=== PATIENT | female | born 1965 | race Caucasian/White ===

== ENCOUNTER 2018-04-19 14:07 | Emergency (ER) | payer OTHER ==
[~2018-04-19] VITALS: Ht 160 cm; Wt 121.6 kg
[2018-04-19] MEDS ORDERED: IOHEXOL 350 MG/ML 150 ML (OMNIPAQUE 350) VIAL IV ONE (15:00)
[2018-04-19] MEDS ORDERED: RECEIVED CONTRAST 20 ML VIAL IV SCH (15:00)
[2018-04-19] MEDS ORDERED: NS 100 ML (IVPB) BAG IV ONE (15:00)
--- NOTE | 2018-04-19 15:06 | ED Lower Extremity ---
General Chief Complaint: Lower Extremity Stated Complaint: RIGHT LEG PAIN Nursing Triage Note: Patient advises that she began experiencing pain in the back of her knee and lower right leg shortly after a total knee replacement on 04/04/17. She advises the pain has become progressively worse and today the [facility] health nurse advised that she was tachycardic and was concerned the patient may have a blood clot. Pt. was evaluated at [facility] and referred to ER for ultrasound capabilities. Pt. D Dimer at 1158 04/19/18 3350.0 Nursing Sepsis Screen: No Definite Risk Source: patient Exam Limitations: no limitations History of Present Illness Date Seen by Provider: Apr 19, 2018 Time Seen by Provider: 15:04 Initial Comments To ER per private vehicle from [facility] where she presented today with concerns of right leg pain and swelling. She's also had some exertional dyspnea for the past few days. She had a right total knee replacement at [facility] by Dr. Walker on 04/04/18. No history of DVT. Onset: just prior to arrival Severity: moderate Pain/Injury Location: right leg Method of Injury: other (recent surgery) Allergies and Home Medications Allergies Coded Allergies: No Known Drug Allergies (Unverified , 04/19/18) Home Medications Rivaroxaban 15 Mg Tablet, 15 MG PO BID Prescribed by: ELIN GALLEGOS on 04/19/18 1611 Patient Home Medication List Home Medication List Reviewed: Yes Review of Systems Constitutional: see HPI EENTM: see HPI Respiratory: see HPI, dyspnea on exertion, short of breath Cardiovascular: no symptoms reported Genitourinary: no symptoms reported Musculoskeletal: no symptoms reported Skin: no symptoms reported Psychiatric/Neurological: No Symptoms Reported Past Rbpiyjk-Ghaweh-Dnomue Hx Patient Social History Alcohol Use: Denies Use Recreational Drug Use: No Smoking Status: Current Everyday Smoker Type Used: Cigars Recent Foreign Travel: No Contact w/Someone Who Travel: No Recent Infectious Disease Expo: No Recent Hopitalizations: Yes (total knee replacement 04/04/17) Seasonal Allergies Seasonal Allergies: No Past Medical History Surgeries: Yes (knee, back) Section, Orthopedic Respiratory: No Cardiac: Yes Hypertension Neurological: No Genitourinary: No Gastrointestinal: No Musculoskeletal: No HEENT: No Cancer: No Psychosocial: No Integumentary: No Blood Disorders: No Physical Exam Vital Signs Vital Signs - First Documented 04/19/18 14:44 Temp 98.5 Pulse 115 Resp 16 B/P (MAP) 154/95 (114) Pulse Ox 100 O2 Delivery Room Air Capillary Refill : Less Than 3 Seconds Height, Weight, BMI Height: 5'3.00" Weight: 268lbs. oz. 121.531864ur; BMI Method:Stated General Appearance: WD/WN, no apparent distress, obese HEENT: PERRL/EOMI, normal ENT inspection Neck: non-tender, full range of motion Cardiovascular: tachycardia (borderline at 100) Respiratory: no respiratory distress, no accessory muscle use Gastrointestinal: normal bowel sounds, non tender, soft Hips: bilateral hip non-tender, bilateral hip normal inspection, bilateral hip normal range of motion Legs: left leg pain, left leg soft tissue tenderness, left leg swelling, left leg other (ecchymosis to the medial aspect of the right calf. The incision to the anterior right knee is clean dry and intact.) Knees: bilateral knee non-tender, bilateral knee normal inspection, bilateral knee normal range of motion Ankles: bilateral ankle non-tender, bilateral ankle normal inspection, bilateral ankle normal range of motion Feet: bilateral foot non-tender, bilateral foot normal inspection, bilateral foot normal range of motion Neurologic/Psychiatric: alert, normal mood/affect, oriented x 3 Skin: normal color, warm/dry Progress/Results/Core Measures Results/Orders My Orders Orders - ELIN GALLEGOS APRN Ct Angio Chest W (04/19/18 14:10) Us Venous Lower Ext Rt (04/19/18 14:10) Iohexol Injection (Omnipaque 350 Mg/Ml 1 (04/19/18 15:00) Contrast Received (Contrast Received) (04/19/18 15:00) Ns (Ivpb) (Sodium Chloride 0.9% Ivpb Bag (04/19/18 15:00) Rivaroxaban Tablet (Xarelto Tablet) (04/19/18 16:15) Vital Signs/I&O 04/19/18 04/19/18 14:44 16:28 Temp 98.5 Pulse 115 103 Resp 16 14 B/P (MAP) 154/95 (114) 104/67 (79) Pulse Ox 100 97 O2 Delivery Room Air Room Air Blood Pressure Mean: 114 Diagnostic Imaging Diagonstic Imaging: Ultrasound Comments NAME: VALERIY KNOWLES Henny [facility] REC#: [id number] PT STATUS: REG ER : 1965 PHYSICIAN: ELIN GALLEGOS APRN ADMIT DATE: 04/19/18/ER Draft Date of Exam:04/19/18 US VENOUS LOWER EXT RT PROCEDURE: US right lower extremity venous. TECHNIQUE: Multiple real-time grayscale images were obtained over the right lower extremity in various projections. Additional spectral analysis and color Doppler duplex images were also obtained. INDICATION: Pain and swelling. FINDINGS: There is deep venous thrombosis in the right popliteal vein extending into the posterior tibial vein. The remainder of the right lower extremity venous system is patent. There are no abnormal fluid collections or masses. IMPRESSION: Deep venous thrombosis in the right popliteal vein extending into the posterior tibial vein. Dictated on workstation # [id number] Dict: 04/19/18 1517 Trans: 04/19/18 1521 [id number] Interpreted by: PHILLY LUEVANO MD Electronically signed by: Departure Communication (Admissions) Exertional dyspnea is attributed to deconditioning. The CT angiogram of the chest reveals no evidence of pulmonary embolus or other acute pathology. Impression Primary Impression: Right leg DVT Qualified Codes: I82.401 - Acute embolism and thrombosis of unspecified deep veins of right lower extremity Disposition: HOME, SELF-CARE Condition: Stable Departure-Patient Inst. Decision time for Depature: 16:11 Referrals: CHERYL KUMAR MD (PCP) Primary Care Physician Patient Instructions: Deep Vein Thrombosis (Blood Clots in the Legs) (DC) Add. Discharge Instructions: 1. Follow-up with your doctor next week 2. Return to ER for any shortness of breath, lightheadedness, bloody stools, weakness or other concerns. All discharge instructions reviewed with patient and /or family. Voiced understanding. Scripts Rivaroxaban (Xarelto) 15 Mg Tablet 15 MG PO BID, #42 TAB Prov: ELIN GALLEGOS APRN 04/19/18 ELIN GALLEGOS APRN Apr 19, 2018 15:06
--- NOTE | 2018-04-19 15:22 | Diagnostic Imaging Report ---
PROCEDURE: US right lower extremity venous. TECHNIQUE: Multiple real-time grayscale images were obtained over the right lower extremity in various projections. Additional spectral analysis and color Doppler duplex images were also obtained. INDICATION: Pain and swelling. FINDINGS: There is deep venous thrombosis in the right popliteal vein extending into the posterior tibial vein. The remainder of the right lower extremity venous system is patent. There are no abnormal fluid collections or masses. IMPRESSION: Deep venous thrombosis in the right popliteal vein extending into the posterior tibial vein. Dictated by: Dictated on workstation # [id number]
--- NOTE | 2018-04-19 15:44 | Diagnostic Imaging Report ---
PROCEDURE: CT angiography of the chest with contrast. TECHNIQUE: Multiple contiguous axial images were obtained through the chest after uneventful bolus administration of intravenous contrast. 2D reconstructed CTA MIP acquisitions were also performed. INDICATION: Shortness of breath. Recent knee surgery. COMPARISON: None. FINDINGS: The pulmonary arteries are diagnostic to the segmental level. No filling defect is seen to indicate pulmonary embolus. The aorta demonstrates no dissection or narrowing. The heart is normal in size. There is no pericardial effusion. No mediastinal adenopathy is seen. The thyroid gland appears mildly large and heterogeneous. The lungs demonstrate no focal consolidation. There is no pleural effusion or pneumothorax. No central endobronchial lesions are seen. Imaged portions of the upper abdomen demonstrate no acute abnormality. A small splenule is noted. No acute osseous abnormality is seen. There are mild degenerative changes in the thoracic spine. IMPRESSION: 1. No pulmonary embolus. No acute pulmonary abnormality is seen. Dictated by: Dictated on workstation # [id number]
[2018-04-19] MEDS ORDERED: RIVA15TA PO (16:11)
[2018-04-19] MEDS ORDERED: RIVAROXABAN 15 MG TABLET (XARELTO) PO ONE (16:15)
[2018-04-19 16:28] VITALS: BP 104/67
--- OUTSIDE RECORDS SUMMARY | 2018-04-21 10:08 | XMS REPORT ---
Author Author KHANH NO [facility] Address [address] [place] [address] Care Team Providers Care Detail Technician Name Role Phone KHANH NO Unavailable PROBLEMS Type Condition ICD9-CM Code [id number] Code Onset Dates Condition Status SNOMED Code Problem Bunion, right foot M21.611 Active 068704480 Problem Acquired hypothyroidism E03.9 Active 967714955 Problem Abnormal thyroid blood test R94.6 Active 583211780 Problem Acute non-recurrent maxillary sinusitis J01.00 Active 94295854 Problem Plantar wart, right foot B07.0 Active 74742316 Problem Essential hypertension I10 Active 54224831 Problem History of anemia Z86.2 Active 593077468 ALLERGIES Unknown Allergies SOCIAL HISTORY No smoking Hx information available PLAN OF CARE VITAL SIGNS MEDICATIONS Unknown Medications RESULTS Name Result Date Reference Range LIPID PANEL 2016-03-20 Cholesterol, Total 177 100-199 Triglycerides 166 0-149 HDL Cholesterol 33 >39 VLDL Cholesterol Juan Carlos 33 5-40 LDL Cholesterol Calc 111 0-99 Comment: PROCEDURES Procedure Date Ordered Related Diagnosis Body Site LIPID PANEL Mar 20, 2016 VENIPUNCT, ROUTINE* Mar 20, 2016 IMMUNIZATIONS No Known Immunizations
--- OUTSIDE RECORDS SUMMARY | 2018-04-21 10:08 | XMS REPORT ---
Author Author KHANH NO [facility] Address [address] [place] [address] Care Team Providers Care Cds Sales Advisor Name Role Phone KHANH NO Unavailable PROBLEMS Type Condition ICD9-CM Code RBQ94-WO Code Onset Dates Condition Status SNOMED Code Problem Bunion, right foot M21.611 Active 821277009 Problem Acquired hypothyroidism E03.9 Active 232372219 Problem Abnormal thyroid blood test R94.6 Active 959018152 Problem Acute non-recurrent maxillary sinusitis J01.00 Active 64402266 Problem Plantar wart, right foot B07.0 Active 07595046 Problem Essential hypertension I10 Active 86188983 Problem History of anemia Z86.2 Active 874428764 ALLERGIES Substance Reaction Event Type Date Status N.K.D.A. Unknown Non Drug Allergy Feb, Unknown SOCIAL HISTORY No smoking Hx information available PLAN OF CARE Activity Details Follow Up 3-4 weeks Reason:BP/review lab VITAL SIGNS Height 63 in 2016-03-15 Weight 282.5 lbs 2016-03-15 Temperature 98.1 degrees Fahrenheit 2016-03-15 Heart Rate 84 bpm 2016-03-15 Respiratory Rate 22 2016-03-15 BMI 50.04 kg/m2 2016-03-15 Blood pressure systolic 177 mmHg 2016-03-15 Blood pressure diastolic 101 mmHg 2016-03-15 MEDICATIONS Medication Instructions Dosage Frequency Start Date End Date Duration Status Lisinopril 20 mg Orally Once a day 1/2 tab daily x 3 days then 1 tablet daily 24h Feb, Active Augmentin 875-125 MG Orally every 12 hrs 1 tablet 12h Feb, Mar, 10 day(s) Active RESULTS Name Result Date Reference Range TSH 2016-03-15 TSH 7.620 0.450-4.500 CBC 2016-03-15 WBC 8.0 3.4-10.8 RBC 5.10 3.77-5.28 Hemoglobin 14.1 11.1-15.9 Hematocrit 43.6 34.0-46.6 MCV 86 79-97 MCH 27.6 26.6-33.0 MCHC 32.3 31.5-35.7 RDW 15.0 12.3-15.4 Platelets 231 150-379 Neutrophils 57 Lymphs 30 Monocytes 9 Eos 3 Basos 1 Neutrophils (Absolute) 4.6 1.4-7.0 Lymphs (Absolute) 2.4 0.7-3.1 Monocytes(Absolute) 0.7 0.1-0.9 Eos (Absolute) 0.3 0.0-0.4 Baso (Absolute) 0.0 0.0-0.2 Immature Granulocytes 0 Immature Grans (Abs) 0.0 0.0-0.1 CMP 2016-03-15 Glucose, Serum 72 65-99 BUN 6 6-24 Creatinine, Serum 0.68 0.57-1.00 eGFR If NonAfricn Am 104 >59 eGFR If Africn Am 120 >59 BUN/Creatinine Ratio 9 9-23 Sodium, Serum 139 134-144 Potassium, Serum 4.2 3.5-5.2 Chloride, Serum 97 96-106 Carbon Dioxide, Total 24 18-29 Calcium, Serum 8.9 8.7-10.2 Protein, Total, Serum 7.3 6.0-8.5 Albumin, Serum 4.2 3.5-5.5 Globulin, Total 3.1 1.5-4.5 A/G Ratio 1.4 1.1-2.5 Bilirubin, Total 0.3 0.0-1.2 Alkaline Phosphatase, S 75 39-117 AST (SGOT) 19 0-40 ALT (SGPT) 11 0-32 PROCEDURES Procedure Date Ordered Related Diagnosis Body Site ASSAY THYROID STIM HORMONE Mar 15, 2016 COMPREHEN METABOLIC PANEL Mar 15, 2016 Office Visit, New Pt., Level 4 Mar 15, 2016 COMPLETE CBC W/AUTO DIFF WBC Mar 15, 2016 VENIPUNCT, ROUTINE* Mar 15, 2016 IMMUNIZATIONS No Known Immunizations
--- OUTSIDE RECORDS SUMMARY | 2018-04-21 10:08 | XMS REPORT ---
Author Author KHANH NO [facility] Address [address] [place] [address] Care Team Providers Care Assembling Motor Builder Name Role Phone KHANH NO Unavailable PROBLEMS Type Condition ICD9-CM Code VOH12-SP Code Onset Dates Condition Status SNOMED Code Problem Bunion, right foot M21.611 Active 680389799 Problem Acquired hypothyroidism E03.9 Active 146536931 Problem Abnormal thyroid blood test R94.6 Active 665172680 Problem Acute non-recurrent maxillary sinusitis J01.00 Active 92319527 Problem Plantar wart, right foot B07.0 Active 39888182 Problem Essential hypertension I10 Active 21945509 Problem History of anemia Z86.2 Active 710154887 ALLERGIES Substance Reaction Event Type Date Status N.K.D.A. Unknown Non Drug Allergy Feb, Unknown SOCIAL HISTORY No smoking Hx information available PLAN OF CARE VITAL SIGNS MEDICATIONS Unknown Medications RESULTS No Results PROCEDURES No Known procedures IMMUNIZATIONS No Known Immunizations
--- OUTSIDE RECORDS SUMMARY | 2018-04-21 10:08 | XMS REPORT ---
Author Author KHANH NO [facility] Address [address] [place] [address] Care Team Providers Care Urology Surgeon Name Role Phone ONEAL KHANH Unavailable PROBLEMS Type Condition ICD9-CM Code FSB51-WY Code Onset Dates Condition Status SNOMED Code Problem Bunion, right foot M21.611 Active 445789834 Problem Acquired hypothyroidism E03.9 Active 047529207 Problem Abnormal thyroid blood test R94.6 Active 179360994 Problem Acute non-recurrent maxillary sinusitis J01.00 Active 94232121 Problem Plantar wart, right foot B07.0 Active 19368405 Problem Essential hypertension I10 Active 08260075 Problem History of anemia Z86.2 Active 000317758 ALLERGIES No Information ENCOUNTERS Encounter Location Date Diagnosis [place] [id number] [place] [phone] Jul, Acquired hypothyroidism E03.9 [facility] [id number] [place] [address] Jul, [facility] [id number] [place] [address] Jul, [facility] [address] [place] [address] June, Acquired hypothyroidism E03.9 [facility] [address] [place] [address] Feb, Acquired hypothyroidism E03.9 [facility] [id number] [place] [id number] Feb, Acquired hypothyroidism E03.9 [facility] [address] [place] [address] Feb, Acute non-recurrent maxillary sinusitis J01.00 ; Plantar wart, right foot B07.0 ; Acquired hypothyroidism E03.9 ; Essential hypertension I10 and History of anemia Z86.2 [facility] [address] [facility] [id number] [place] [address] Feb, IMMUNIZATIONS No Known Immunizations SOCIAL HISTORY Never Assessed REASON FOR VISIT Refill request PLAN OF CARE VITAL SIGNS MEDICATIONS Medication Instructions Dosage Frequency Start Date End Date Duration Status Levothyroxine Sodium 75 mcg Orally Once a day-Must have appt for refills 1 tablet on an empty stomach in the morning Feb, 14 days Active RESULTS No Results PROCEDURES No Known procedures INSTRUCTIONS MEDICATIONS ADMINISTERED No Known Medications MEDICAL (GENERAL) HISTORY Type Description Date Medical History hypothyrodism Surgical History back surgery lalo and 3-4 screws lumbar 2013 Surgical History section x2 Hospitalization History [facility] Hospitalization History Surgery(s)/Childbirth(s)
--- OUTSIDE RECORDS SUMMARY | 2018-04-21 10:08 | XMS REPORT ---
Author Author KHANH NO [facility] Address [address] [place] [address] Care Team Providers Care Art Specialist Name Role Phone KHANH NO Unavailable PROBLEMS Type Condition ICD9-CM Code PKJ75-CR Code Onset Dates Condition Status SNOMED Code Problem Bunion, right foot M21.611 Active 111058797 Problem Acquired hypothyroidism E03.9 Active 015495758 Problem Abnormal thyroid blood test R94.6 Active 057844058 Problem Acute non-recurrent maxillary sinusitis J01.00 Active 98791088 Problem Plantar wart, right foot B07.0 Active 88177881 Problem Essential hypertension I10 Active 56000039 Problem History of anemia Z86.2 Active 472229354 ALLERGIES No Information SOCIAL HISTORY Never Assessed PLAN OF CARE VITAL SIGNS MEDICATIONS Medication Instructions Dosage Frequency Start Date End Date Duration Status Levothyroxine Sodium 75 mcg Orally Once a day-Must have appt for refills 1 tablet on an empty stomach in the morning Feb, 30 day(s) Active RESULTS No Results PROCEDURES No Known procedures IMMUNIZATIONS No Known Immunizations MEDICAL (GENERAL) HISTORY Type Description Date Medical History hypothyrodism Surgical History back surgery lalo and 3-4 screws lumbar 2013 Surgical History section x2 Hospitalization History [facility] Hospitalization History Surgery(s)/Childbirth(s)
--- OUTSIDE RECORDS SUMMARY | 2018-04-21 10:08 | XMS REPORT ---
Author Author KHANH NO [facility] Address [address] [place] [address] Care Team Providers Care Maintenance Construction Helper Name Role Phone ONEAL KHANH Unavailable PROBLEMS Type Condition ICD9-CM Code DHH23-KG Code Onset Dates Condition Status SNOMED Code Problem Bunion, right foot M21.611 Active 691796879 Problem Acquired hypothyroidism E03.9 Active 916296379 Problem Abnormal thyroid blood test R94.6 Active 856660823 Problem Acute non-recurrent maxillary sinusitis J01.00 Active 41139257 Problem Plantar wart, right foot B07.0 Active 90505853 Problem Essential hypertension I10 Active 87121299 Problem History of anemia Z86.2 Active 574688729 ALLERGIES No Information ENCOUNTERS Encounter Location Date Diagnosis [place] [address] [place] [phone] Jul, Acquired hypothyroidism E03.9 [facility] [id number] [place] [address] Jul, [facility] [id number] [place] [address] Jul, [facility] [address] [place] [address]- 4788 June, Acquired hypothyroidism E03.9 [facility] [address] [place] [address] 12[address]- [address] Feb, Acquired hypothyroidism E03.9 [facility] [id number] [place] [id number] Feb, Acquired hypothyroidism E03.9 [facility] [address] [place] [address] 11771- [phone] Feb, Acute non-recurrent maxillary sinusitis J01.00 ; Plantar wart, right foot B07.0 ; Acquired hypothyroidism E03.9 ; Essential hypertension I10 and History of anemia Z86.2 [facility] [address] [facility] [id number] [place] [address] Feb, IMMUNIZATIONS No Known Immunizations SOCIAL HISTORY Never Assessed REASON FOR VISIT Refill request PLAN OF CARE VITAL SIGNS MEDICATIONS Unknown Medications RESULTS No Results PROCEDURES No Known procedures INSTRUCTIONS MEDICATIONS ADMINISTERED No Known Medications MEDICAL (GENERAL) HISTORY Type Description Date Medical History hypothyrodism Surgical History back surgery lalo and 3-4 screws lumbar 2012 Surgical History section x2 Hospitalization History [facility] Hospitalization History Surgery(s)/Childbirth(s)
--- OUTSIDE RECORDS SUMMARY | 2018-04-21 10:08 | XMS REPORT ---
Author Author KHANH NO [facility] Address [address] [place] [address] Care Team Providers Care Milling Machine Tender Name Role Phone KHANH NO Unavailable PROBLEMS Type Condition ICD9-CM Code ZLT99-IG Code Onset Dates Condition Status SNOMED Code Problem Bunion, right foot M21.611 Active 118213253 Problem Acquired hypothyroidism E03.9 Active 529936651 Problem Abnormal thyroid blood test R94.6 Active 410704279 Problem Acute non-recurrent maxillary sinusitis J01.00 Active 42414060 Problem Plantar wart, right foot B07.0 Active 70634605 Problem Essential hypertension I10 Active 76961772 Problem History of anemia Z86.2 Active 573759149 ALLERGIES Unknown Allergies SOCIAL HISTORY No smoking Hx information available PLAN OF CARE VITAL SIGNS MEDICATIONS Medication Instructions Dosage Frequency Start Date End Date Duration Status Levothyroxine Sodium 75 mcg Orally Once a day 1 tablet on an empty stomach in the morning 24h Feb, 30 day(s) Active RESULTS No Results PROCEDURES No Known procedures IMMUNIZATIONS No Known Immunizations
== END 2018-04-19 16:28 | disposition home or self-care (01) ==
LOC: ER 14:10
DX: I82.401 Acute embolism and thrombosis of unspecified deep veins of right lower extremity (principal); I10 Essential (primary) hypertension; F17.290 Nicotine dependence, other tobacco product, uncomplicated; Z79.01 Long term (current) use of anticoagulants; Z98.890 Other specified postprocedural states
CPT/HCPCS: 71275

== ENCOUNTER → 2022-06-14 | Outpatient (CLI) | payer OTHER ==
[~2022-06-14] MED LIST: GADOTERATE 0.5 MMOL/ML (CLARISCAN) 20 ML VIAL IV ONE; GADOTERATE 0.5 MMOL/ML (CLARISCAN) 5 ML VIAL IV ONE; RIVA15TA2 PO
--- NOTE | 2022-06-14 17:21 | Diagnostic Imaging Report ---
PROCEDURE: MR imaging cervical spine with and without contrast. TECHNIQUE: Multiplanar and multisequence MRI of the cervical spine was performed with and without contrast. INDICATION: Recurrent facial and bilateral upper extremity paresthesia. FINDINGS: There is loss of normal cervical lordosis. AP dimension of spinal canal is at the lower limits of normal, diffusely. There is diffuse cervical disc desiccation. The C2-C3 disc is unremarkable. At C3-C4, there is mild annular bulging without significant stenosis. At C4-C5, there is diffuse disc bulging and endplate spurring resulting in moderate spinal stenosis and severe bilateral neuroforaminal stenosis, greater on the right. Endplate spurring is greater to the left of midline resulting in high-grade left lateral recess stenosis. At C5-C6 there is also diffuse disc bulging and endplate spurring which is eccentric toward the left. This results in high-grade spinal and left lateral recess stenosis with high-grade left neural foraminal stenosis. At C6-C7 right paramedian disc osteophyte complex causes mild right lateral recess and neural foraminal stenosis. C7-T1 there is diffuse disc bulging and endplate spurring causing mild right neural foraminal stenosis. There is abnormal increased T2 signal within the spinal cord at the C3-C4 through C5-C6 levels. There is no cord enlargement and no abnormal contrast enhancement is identified. There is no marrow signal abnormality identified to indicate fracture. IMPRESSION: Extensive diffuse degenerative disc disease most pronounced at C4-C5 and C5-C6 where there is high-grade spinal and neural foraminal as well as lateral recess stenosis. This is most pronounced on the left and may contribute to patient's symptoms. Dictated by: Dictated on workstation # [id number]
== END ==
LOC: RAD 05-30 12:40
PROVIDERS: ATTEND Nurse Practitioner
DX: M50.121 Cervical disc disorder at C4-C5 level with radiculopathy (principal); M50.122 Cervical disc disorder at C5-C6 level with radiculopathy; M48.02 Spinal stenosis, cervical region
CPT/HCPCS: 72156